=== PATIENT | female | born 1985 | race Caucasian/White ===

== ENCOUNTER 2021-04-14 21:01 | Emergency (ER) | payer OTHER ==
[~2021-04-14] VITALS: Ht 160 cm; Wt 55.0 kg
[2021-04-14 21:01] VITALS: BP 130/75
[2021-04-14] MEDS ORDERED: AMOX500C PO (21:26)
--- NOTE | 2021-04-14 21:27 | PHYS DOC ---
Past History Additional Past Medical Histor: svt(during ) Past Surgical History: Other Additional Past Surgical Histo: cardiac ablastion(svt), Adult General Chief Complaint Chief Complaint: SORE THROAT HPI HPI Patient is a otherwise healthy 35-year-old female who presents with 2 days of sore throat, congestion, fevers at home and mild occasional headache. States that there is to swallow, and throat is about 7 out of 10, sharp in nature but is able to eat and drink. Review of Systems Review of Systems Review of systems otherwise unremarkable except noted in HPI Physical Exam Physical Exam Constitutional: Well developed, well nourished, no acute distress, non-toxic appearance. [] HENT: Normocephalic, atraumatic, bilateral external ears normal, bilateral tympanic membranes normal, oropharynx moist, oropharyngeal erythema bilaterally with some scant tonsillar exudate Eyes:conjunctiva normal, no discharge. [] Neck: Normal range of motion, no tenderness, supple, no stridor, left-sided cervical lymphadenopathy. [] Neurologic: Alert and oriented X 3, normal motor function, normal sensory function, no focal deficits noted. [] Psychologic: Affect normal, judgement normal, mood normal. [] Current Patient Data Vital Signs Vital Signs Date Time Temp Pulse Resp B/P (MAP) Pulse Ox O2 Delivery O2 Flow Rate FiO2 04/14/21 21:01 98.6 Room Air EKG EKG [] Radiology/Procedures Radiology/Procedures [] Heart Score C/O Chest Pain: No Risk Factors: Risk Factors: DM, Current or recent (<one month) smoker, HTN, HLP, family history of CAD, obesity. Risk Scores: Risk Factors: DM, Current or recent (<one month) smoker, HTN, HLP, family history of CAD, obesity. Course & Med Decision Making Course & Med Decision Making Patient is a 35-year-old female presents with couple days of sore throat, congestion, and headache Vital signs not concerning. Physical exam noted above. Patient states she just took Tylenol about an hour or so before coming in. Centor criteria high enough to begin treatment for strep pharyngitis. Started on amoxicillin for strep pharyngitis. gave a dose of steroids. Advised on symptomatic treatment at home. Advised to call primary care physician in the morning to update on ED visit and set up a follow-up. Gave return precautions to the ED. Patient grateful, verbalized understanding and agreed with plan of discharge. [] Dragon Disclaimer Dragon Disclaimer This electronic medical record was generated, in whole or in part, using a voice recognition dictation system. Departure Departure: Impression: Primary Impression: Strep pharyngitis Disposition: HOME / SELF CARE / HOMELESS Condition: GOOD Referrals: PCP,UNKNOWN (PCP) [facility] Patient Instructions: Strep Throat Additional Instructions: Thank you for coming into the emergency department tonight and allowing us to take care of you. Please read the attached information carefully to go over things we discussed. Please take your antibiotics as prescribed and until gone. Please continue your Tylenol as we discussed. Please also stop and get Cepacol lozenges and use them as we discussed. Please call your primary care physician in the morning to update on ED visit and set up a follow-up when you can. Please come back with new or concerning symptoms as we discussed. Scripts Amoxicillin (AMOXICILLIN) 500 Mg Capsule 1 CAP PO BID for strep for 10 Days, #19 CAP Prov: KARLEE GARZA MD 04/14/21 KARLEE GARZA MD Apr 14, 2021 21:27
[2021-04-14] MEDS ORDERED: AMOXICILLIN 250 MG CAPSULE ONE (21:30)
[2021-04-14] MEDS ORDERED: DEXAMETHASONE SOD PHOS 4 MG/ML VIAL. PO ONE (21:30)
[2021-04-14] MEDS ORDERED: DEXAMETHASONE 4 MG TABLET ONE (21:30)
[2021-04-14] MEDS: AMOXICILLIN 250 MG CAPSULE PO ONE (21:33)
== END 2021-04-14 21:37 | disposition home or self-care (01) ==
LOC: ER 21:01
DX: J02.0 Streptococcal pharyngitis (principal); R51.9 Headache, unspecified
CPT/HCPCS: 99283